=== PATIENT | male | born 1960 | race Caucasian/White ===

== ENCOUNTER 2017-07-06 19:25 | Inpatient (IN) | payer OTHER ==
[~2017-07-06] VITALS: Ht 170.2 cm; Wt 61.0 kg
[2017-07-06] MEDS ORDERED: SODIUM CHLORIDE 0.9% 1000ML BAG (SEPSIS BOLUS) IV ONE (19:45)
[2017-07-06 20:27] LABS: BASOPHILS % 0.4 % (0.0-2.0); EOSINOPHILS % 0.5 % (0.0-5.0); HEMATOCRIT. 27.5 % (42.0-52.0); HEMOGLOBIN. 9.3 g/dL (14.0-18.0); LYMPHOCYTES % 11.7 % (20.0-50.0); MEAN CORPUSCULAR VOLUME 80.1 fL (80.0-94.0); MEAN PLATELET VOLUME 6.5 fl (7.4-10.4); MONOCYTES % 7.7 % (2.0-8.0); NEUTROPHILS % 79.7 % (40.0-76.0); PLATELET 527 x1000/uL (130-400); RED BLOOD CELL COUNT 3.43 mill/uL (4.7-6.1); RED CELL DISTRIBUTION WIDTH 16.5 % (11.6-14.6)
[2017-07-06 20:32] LABS: INR 1.2; PROTHROMBIN TIME 12.1 sec (9.4-11.6)
[2017-07-06 20:33] LABS: CHLORIDE 88 mEq/L (98-107)
[2017-07-06 20:34] LABS: CARBON DIOXIDE 22 mEq/L (21-32)
[2017-07-06] MEDS ORDERED: VANCOMYCIN 1 G PREMIX 200 ML IV ONE (21:00)
[2017-07-06] MEDS ORDERED: SODIUM CHLORIDE 0.9% 1,000 ML IV ONE (21:00)
[2017-07-06] MEDS ORDERED: PIPERACILLIN/TAZ 3.375G PREMIX 50 ML IV ONE (21:00)
[2017-07-06] MEDS ORDERED: SODIUM CHLORIDE 0.9% 1,000 ML IV SCH ×2 (21:01→22:00)
[2017-07-06] MEDS ORDERED: IBUPROFEN 600MG TABLET PO PRN (21:15)
[2017-07-06] MEDS ORDERED: ACETAMINOPHEN 325MG TABLET PO PRN ×2 (21:15→22:14)
[2017-07-06] MEDS ORDERED: MORPHINE SULFATE 4 MG/ML CPJ (NOT FOR IM USE) IV ONE (21:15)
[2017-07-06] MEDS ORDERED: ENOXAPARIN 40MG/0.4ML SYR SUBCUT SCH (21:45)
[2017-07-06] MEDS ORDERED: PIPERACILLIN/TAZ 3.375G PREMIX 50 ML IV SCH (21:45)
[2017-07-06] MEDS ORDERED: VANCOMYCIN 1 G PREMIX 200 ML IV SCH (21:45)
[2017-07-06] MEDS ORDERED: ONDANSETRON HCL 4MG/2ML VIAL IV PRN (22:13)
[2017-07-06] MEDS ORDERED: CLONIDINE 0.1MG TABLET PO PRN (22:14)
[2017-07-06] MEDS ORDERED: DOCUSATE SODIUM 100MG CAPSULE PO PRN (22:14)
[2017-07-06] MEDS ORDERED: HYDROMORPHONE HCL/PF 2MG/ML CPJ IV PRN (22:45)
[2017-07-06 23:09] LABS: HEPATITIS B SURFACE ANTIGEN NEGATIVE
[2017-07-07] MEDS ORDERED: IPRATROPIUM/ALBUTEROL 0.5-3(2.5)MG/3ML NEB HHN SCH
[2017-07-07 00:46] LABS: CLARITY URINE TURBID (CLEAR); COLOR URINE YELLOW (YELLOW); GLUCOSE URINE NEGATIVE (NEGATIVE); KETONES URINE NEGATIVE (NEGATIVE); LEUKOCYTE ESTERASE URINE 3+ (NEGATIVE); NITRITE URINE NEGATIVE (NEGATIVE); OCCULT BLOOD URINE TRACE (NEGATIVE); PH URINE >=9.0 (4.5-8.0); PROTEIN URINE 2+ (NEGATIVE); SPECIFIC GRAVITY URINE 1.009 (1.005-1.030)
[2017-07-07] MEDS ORDERED: VANCOMYCIN 1 G PREMIX 200 ML IV SCH (01:45)
[2017-07-07 02:00] VITALS: BP 80/46
[2017-07-07] MEDS ORDERED: DEXTROSE 50% WATER 50ML SYRINGE IV PRN (02:15)
[2017-07-07] MEDS: SODIUM CHLORIDE 0.9% 1,000 ML IV SCH ×2 (03:09→14:31)
[2017-07-07 05:00] VITALS: BP 82/52
[2017-07-07] MEDS: BLOOD SUGAR DIAGNOSTIC STRIP TEST SCH ×4 (06:45→20:32)
[2017-07-07] MEDS: INSULIN LISPRO 100 UNITS/ML SUBCUT SCH ×4 (06:45→20:32)
[2017-07-07] MEDS: PIPERACILLIN/TAZ 3.375G PREMIX 50 ML IV SCH ×3 (06:45→22:57)
[2017-07-07 07:45] LABS: HEPATITIS A AB IGM NEGATIVE (NEGATIVE); HEPATITIS B CORE AB IGM NEGATIVE
[2017-07-07 08:00] VITALS: BP 80/44
[2017-07-07] MEDS: ENOXAPARIN 40MG/0.4ML SYR SUBCUT SCH (08:33)
[2017-07-07] MEDS ORDERED: FAMOTIDINE 20MG TABLET PO SCH (09:00)
[2017-07-07] MEDS ORDERED: VANCOMYCIN 1250MG in DEXTROSE 5% WATER 250ML IV SCH (09:00)
[2017-07-07] MEDS ORDERED: NON FORMULARY PATIENT HOME MED EA XX SCH (11:15)
[2017-07-07 12:00] VITALS: BP 84/48
[2017-07-07 16:00] VITALS: BP 71/42
[2017-07-07] MEDS: ACETAMINOPHEN 325MG TABLET PO PRN (16:51)
[2017-07-07] MEDS: FERROUS SULFATE 325MG TABLET PO SCH (16:51)
[2017-07-07] MEDS: VANCOMYCIN 750 MG PREMIX 150 ML IV SCH (17:14)
[2017-07-07 20:00] VITALS: BP 81/48
[2017-07-07] MEDS: FAMOTIDINE 20MG TABLET PO SCH (22:57)
[2017-07-08] VITALS: BP 84/47
[2017-07-08] MEDS: IPRATROPIUM/ALBUTEROL 0.5-3(2.5)MG/3ML NEB HHN SCH ×6 (00:35→20:18)
[2017-07-08] MEDS: VANCOMYCIN 750 MG PREMIX 150 ML IV SCH ×3 (01:11→17:25)
[2017-07-08 04:00] VITALS: BP 72/40
[2017-07-08] MEDS: SODIUM CHLORIDE 0.9% 1,000 ML IV SCH ×2 (05:02→17:26)
[2017-07-08] MEDS: PIPERACILLIN/TAZ 3.375G PREMIX 50 ML IV SCH ×3 (05:03→23:13)
[2017-07-08 05:55] LABS: BASOPHILS % 0.7 % (0.0-2.0); EOSINOPHILS % 0.7 % (0.0-5.0); HEMATOCRIT. 25.4 % (42.0-52.0); HEMOGLOBIN. 8.2 g/dL (14.0-18.0); LYMPHOCYTES % 10.1 % (20.0-50.0); MEAN CORPUSCULAR HEMOGLOBIN 26.5 pg (28.0-32.0); MEAN CORPUSCULAR VOLUME 81.7 fL (80.0-94.0); MEAN PLATELET VOLUME 6.2 fl (7.4-10.4); MONOCYTES % 6.6 % (2.0-8.0); NEUTROPHILS % 81.9 % (40.0-76.0); PLATELET 511 x1000/uL (130-400); RED BLOOD CELL COUNT 3.11 mill/uL (4.7-6.1); RED CELL DISTRIBUTION WIDTH 16.3 % (11.6-14.6)
[2017-07-08] MEDS: BLOOD SUGAR DIAGNOSTIC STRIP TEST SCH ×4 (06:11→21:00)
[2017-07-08] MEDS: INSULIN LISPRO 100 UNITS/ML SUBCUT SCH ×4 (06:16→21:00)
[2017-07-08 08:00] VITALS: BP 78/44
[2017-07-08] MEDS: FERROUS SULFATE 325MG TABLET PO SCH ×2 (09:11→16:39)
[2017-07-08] MEDS: FAMOTIDINE 20MG TABLET PO SCH ×2 (09:11→21:35)
[2017-07-08] MEDS: ENOXAPARIN 40MG/0.4ML SYR SUBCUT SCH (09:11)
[2017-07-08 12:00] VITALS: BP 82/49
[2017-07-08] MEDS: MULTIVITAMINS,THER W-MINERALS TABLET PO SCH (15:00)
[2017-07-08] MEDS: ZINC SULFATE 220 MG ( 50 ) CAPSULE PO SCH (15:00)
[2017-07-08 16:00] VITALS: BP 86/47
[2017-07-08 20:00] VITALS: BP 82/44
[2017-07-08] MEDS: ASCORBIC ACID 250 MG TABLET PO SCH (21:34)
[2017-07-09] MEDS: IPRATROPIUM/ALBUTEROL 0.5-3(2.5)MG/3ML NEB HHN SCH ×6 (00:26→21:27)
[2017-07-09] MEDS: VANCOMYCIN 750 MG PREMIX 150 ML IV SCH ×2 (01:23→09:13)
[2017-07-09] MEDS: BLOOD SUGAR DIAGNOSTIC STRIP TEST SCH ×4 (05:53→20:31)
[2017-07-09] MEDS: PIPERACILLIN/TAZ 3.375G PREMIX 50 ML IV SCH (05:58)
[2017-07-09] MEDS: SODIUM CHLORIDE 0.9% 1,000 ML IV SCH ×2 (06:01→20:32)
[2017-07-09] MEDS: INSULIN LISPRO 100 UNITS/ML SUBCUT SCH ×4 (06:18→20:31)
[2017-07-09 06:29] VITALS: BP 84/49
[2017-07-09 07:00] LABS: BASOPHILS % 0.6 % (0.0-2.0); EOSINOPHILS % 0.8 % (0.0-5.0); HEMATOCRIT. 22.5 % (42.0-52.0); HEMOGLOBIN. 7.4 g/dL (14.0-18.0); LYMPHOCYTES % 10.8 % (20.0-50.0); MEAN CORPUSCULAR HEMOGLOBIN 26.7 pg (28.0-32.0); MEAN CORPUSCULAR VOLUME 81.3 fL (80.0-94.0); MEAN PLATELET VOLUME 6.1 fl (7.4-10.4); MONOCYTES % 7.4 % (2.0-8.0); NEUTROPHILS % 80.4 % (40.0-76.0); PLATELET 485 x1000/uL (130-400); RED BLOOD CELL COUNT 2.76 mill/uL (4.7-6.1); RED CELL DISTRIBUTION WIDTH 16.6 % (11.6-14.6)
[2017-07-09 07:49] LABS: CARBON DIOXIDE 24 mEq/L (21-32); CHLORIDE 102 mEq/L (98-107)
[2017-07-09 08:00] VITALS: BP 82/40
[2017-07-09] MEDS: MULTIVITAMINS,THER W-MINERALS TABLET PO SCH (09:12)
[2017-07-09] MEDS: ASCORBIC ACID 250 MG TABLET PO SCH ×2 (09:12→20:31)
[2017-07-09] MEDS: ZINC SULFATE 220 MG ( 50 ) CAPSULE PO SCH (09:12)
[2017-07-09] MEDS: FERROUS SULFATE 325MG TABLET PO SCH ×2 (09:12→18:20)
[2017-07-09] MEDS: SODIUM HYPOCHLORITE SOLUTION (0.5%)FULL STRENGTH TOP SCH (09:12)
[2017-07-09] MEDS: FAMOTIDINE 20MG TABLET PO SCH ×2 (09:12→20:31)
[2017-07-09] MEDS: ENOXAPARIN 40MG/0.4ML SYR SUBCUT SCH (09:12)
[2017-07-09 11:59] VITALS: BP 89/54
[2017-07-09 16:03] VITALS: BP 88/59
[2017-07-09] MEDS: MEROPENEM 500MG in NORMAL SALINE 50ML IV SCH ×2 (16:54→21:55)
[2017-07-09] MEDS: ACETAMINOPHEN 325MG TABLET PO PRN (16:54)
[2017-07-09 17:40] LABS: HEMATOCRIT 22.8 % (42.0-52.0); HEMOGLOBIN 7.5 g/dL (14.0-18.0)
[2017-07-09 20:00] VITALS: BP 84/49
[2017-07-10] VITALS (10 sets, daily range): BP systolic 83–110; BP diastolic 38–60
[2017-07-10] MEDS: IPRATROPIUM/ALBUTEROL 0.5-3(2.5)MG/3ML NEB HHN SCH ×6 (00:57→20:59)
[2017-07-10] MEDS: MEROPENEM 500MG in NORMAL SALINE 50ML IV SCH ×3 (05:29→21:45)
[2017-07-10] MEDS: FERROUS SULFATE 325MG TABLET PO SCH ×2 (06:52→17:21)
[2017-07-10] MEDS: INSULIN LISPRO 100 UNITS/ML SUBCUT SCH ×4 (06:52→21:46)
[2017-07-10] MEDS: BLOOD SUGAR DIAGNOSTIC STRIP TEST SCH ×4 (06:52→20:44)
[2017-07-10 07:36] LABS: BASOPHILS % 0.6 % (0.0-2.0); EOSINOPHILS % 1.3 % (0.0-5.0); HEMATOCRIT. 22.1 % (42.0-52.0); HEMOGLOBIN. 7.4 g/dL (14.0-18.0); LYMPHOCYTES % 16.8 % (20.0-50.0); MEAN CORPUSCULAR HEMOGLOBIN 27.3 pg (28.0-32.0); MEAN CORPUSCULAR VOLUME 81.3 fL (80.0-94.0); MEAN PLATELET VOLUME 6.4 fl (7.4-10.4); NEUTROPHILS % 72.3 % (40.0-76.0); PLATELET 508 x1000/uL (130-400); RED BLOOD CELL COUNT 2.72 mill/uL (4.7-6.1); RED CELL DISTRIBUTION WIDTH 16.9 % (11.6-14.6)
[2017-07-10 07:54] LABS: CARBON DIOXIDE 25 mEq/L (21-32); CHLORIDE 102 mEq/L (98-107)
[2017-07-10] MEDS: MULTIVITAMINS,THER W-MINERALS TABLET PO SCH (08:53)
[2017-07-10] MEDS: FAMOTIDINE 20MG TABLET PO SCH ×2 (08:53→20:44)
[2017-07-10] MEDS: ASCORBIC ACID 250 MG TABLET PO SCH ×2 (08:53→20:44)
[2017-07-10] MEDS: ZINC SULFATE 220 MG ( 50 ) CAPSULE PO SCH (08:53)
[2017-07-10] MEDS: SODIUM CHLORIDE 0.9% 1,000 ML IV SCH (08:54)
[2017-07-10] MEDS: SODIUM HYPOCHLORITE SOLUTION (0.5%)FULL STRENGTH TOP SCH (08:54)
[2017-07-10] MEDS: ACETAMINOPHEN 325MG TABLET PO PRN (16:47)
[2017-07-11] VITALS: BP 88/48
[2017-07-11] MEDS: IPRATROPIUM/ALBUTEROL 0.5-3(2.5)MG/3ML NEB HHN SCH ×6 (00:17→20:37)
[2017-07-11 04:00] VITALS: BP_SYST 88; BP_SYST 94; BP_DIAS 48; BP_DIAS 49
[2017-07-11] MEDS: SODIUM CHLORIDE 0.9% 1,000 ML IV SCH ×2 (05:03→11:23)
[2017-07-11] MEDS: MEROPENEM 500MG in NORMAL SALINE 50ML IV SCH ×3 (05:04→23:25)
[2017-07-11] MEDS: BLOOD SUGAR DIAGNOSTIC STRIP TEST SCH ×4 (06:14→21:50)
[2017-07-11] MEDS: INSULIN LISPRO 100 UNITS/ML SUBCUT SCH ×4 (06:14→21:58)
[2017-07-11] MEDS: FERROUS SULFATE 325MG TABLET PO SCH ×3 (06:48→16:46)
[2017-07-11 07:00] LABS: BASOPHILS % 0.7 % (0.0-2.0); EOSINOPHILS % 1.5 % (0.0-5.0); HEMATOCRIT. 24.8 % (42.0-52.0); HEMOGLOBIN. 8.1 g/dL (14.0-18.0); LYMPHOCYTES % 15.3 % (20.0-50.0); MEAN CORPUSCULAR HEMOGLOBIN 26.6 pg (28.0-32.0); MEAN PLATELET VOLUME 6.2 fl (7.4-10.4); MONOCYTES % 8.8 % (2.0-8.0); NEUTROPHILS % 73.7 % (40.0-76.0); PLATELET 502 x1000/uL (130-400); RED BLOOD CELL COUNT 3.06 mill/uL (4.7-6.1); RED CELL DISTRIBUTION WIDTH 16.8 % (11.6-14.6)
[2017-07-11 08:00] VITALS: BP 93/53
[2017-07-11] MEDS: FAMOTIDINE 20MG TABLET PO SCH ×2 (08:52→21:54)
[2017-07-11] MEDS: ZINC SULFATE 220 MG ( 50 ) CAPSULE PO SCH (08:52)
[2017-07-11] MEDS: ASCORBIC ACID 250 MG TABLET PO SCH ×2 (08:52→21:54)
[2017-07-11] MEDS: MULTIVITAMINS,THER W-MINERALS TABLET PO SCH (08:52)
[2017-07-11] MEDS: SODIUM HYPOCHLORITE SOLUTION (0.5%)FULL STRENGTH TOP SCH (08:54)
[2017-07-11] MEDS ORDERED: ACETAMINOPHEN WITH CODEINE 300/30MG TABLET PO NR (11:45)
[2017-07-11 11:57] LABS: *AMPHETAMINES SCREEN URINE NEGATIVE (NEGATIVE); *BARBITURATES SCREEN URINE NEGATIVE (NEGATIVE); *BENZODIAZEPINES SCREEN URINE NEGATIVE (NEGATIVE); *COCAINE SCREEN URINE NEGATIVE (NEGATIVE); CANNABINOID URINE SCREEN NEGATIVE (NEGATIVE); METHADONE URINE SCREEN NEGATIVE (NEGATIVE); OPIATES URINE SCREEN NEGATIVE (NEGATIVE); PHENCYCLIDINE URINE SCREEN NEGATIVE (NEGATIVE)
[2017-07-11 12:00] VITALS: BP 98/61
[2017-07-11 20:00] VITALS: BP 92/58
[2017-07-11] MEDS: ACETAMINOPHEN WITH CODEINE 300/30MG TABLET PO PRN (23:53)
[2017-07-12] VITALS: BP 93/57
[2017-07-12] MEDS: IPRATROPIUM/ALBUTEROL 0.5-3(2.5)MG/3ML NEB HHN SCH ×6 (00:37→21:07)
[2017-07-12] MEDS: SODIUM CHLORIDE 0.9% 1,000 ML IV SCH ×2 (03:10→15:05)
[2017-07-12 04:00] VITALS: BP 96/56
[2017-07-12] MEDS: BLOOD SUGAR DIAGNOSTIC STRIP TEST SCH ×4 (06:15→20:58)
[2017-07-12] MEDS: INSULIN LISPRO 100 UNITS/ML SUBCUT SCH ×4 (06:15→20:59)
[2017-07-12 06:17] LABS: EOSINOPHILS % 1.7 % (0.0-5.0); HEMOGLOBIN. 8.2 g/dL (14.0-18.0); LYMPHOCYTES % 15.6 % (20.0-50.0); MEAN CORPUSCULAR HEMOGLOBIN 26.5 pg (28.0-32.0); MEAN CORPUSCULAR VOLUME 81.1 fL (80.0-94.0); MEAN PLATELET VOLUME 6.1 fl (7.4-10.4); MONOCYTES % 7.7 % (2.0-8.0); PLATELET 499 x1000/uL (130-400); RED BLOOD CELL COUNT 3.08 mill/uL (4.7-6.1)
[2017-07-12] MEDS: MEROPENEM 500MG in NORMAL SALINE 50ML IV SCH ×3 (06:23→23:21)
[2017-07-12] MEDS: FERROUS SULFATE 325MG TABLET PO SCH ×3 (06:27→16:32)
[2017-07-12 06:49] LABS: CARBON DIOXIDE 25 mEq/L (21-32); CHLORIDE 102 mEq/L (98-107)
[2017-07-12 08:00] VITALS: BP 96/58
[2017-07-12] MEDS: ZINC SULFATE 220 MG ( 50 ) CAPSULE PO SCH (08:45)
[2017-07-12] MEDS: MULTIVITAMINS,THER W-MINERALS TABLET PO SCH (08:46)
[2017-07-12] MEDS: ASCORBIC ACID 250 MG TABLET PO SCH ×2 (08:46→20:59)
[2017-07-12] MEDS: FAMOTIDINE 20MG TABLET PO SCH ×2 (08:46→20:59)
[2017-07-12] MEDS: SODIUM HYPOCHLORITE SOLUTION (0.5%)FULL STRENGTH TOP SCH (08:47)
[2017-07-12 12:00] VITALS: BP 99/55
[2017-07-12] MEDS: ACETAMINOPHEN WITH CODEINE 300/30MG TABLET PO PRN ×2 (13:05→21:00)
[2017-07-12 16:00] VITALS: BP 96/55
[2017-07-12] MEDS: AMPICILLIN TRIHYDRATE PO SCH ×2 (18:35→23:21)
[2017-07-12 20:00] VITALS: BP 109/63
[2017-07-13] VITALS: BP 109/65
[2017-07-13] MEDS: IPRATROPIUM/ALBUTEROL 0.5-3(2.5)MG/3ML NEB HHN SCH ×6 (00:40→20:18)
[2017-07-13 04:00] VITALS: BP 110/60
[2017-07-13] MEDS: MEROPENEM 500MG in NORMAL SALINE 50ML IV SCH ×3 (06:27→21:27)
[2017-07-13] MEDS: SODIUM CHLORIDE 0.9% 1,000 ML IV SCH ×2 (06:27→18:10)
[2017-07-13] MEDS: AMPICILLIN TRIHYDRATE PO SCH ×4 (06:28→23:26)
[2017-07-13] MEDS: INSULIN LISPRO 100 UNITS/ML SUBCUT SCH ×4 (06:38→21:00)
[2017-07-13] MEDS: BLOOD SUGAR DIAGNOSTIC STRIP TEST SCH ×4 (06:38→21:30)
[2017-07-13 06:57] LABS: BASOPHILS % 1.1 % (0.0-2.0); EOSINOPHILS % 1.8 % (0.0-5.0); HEMATOCRIT. 25.3 % (42.0-52.0); HEMOGLOBIN. 8.3 g/dL (14.0-18.0); LYMPHOCYTES % 13.3 % (20.0-50.0); MEAN CORPUSCULAR HEMOGLOBIN 26.6 pg (28.0-32.0); MEAN CORPUSCULAR VOLUME 80.9 fL (80.0-94.0); MEAN PLATELET VOLUME 6.1 fl (7.4-10.4); MONOCYTES % 8.1 % (2.0-8.0); NEUTROPHILS % 75.7 % (40.0-76.0); PLATELET 494 x1000/uL (130-400); RED BLOOD CELL COUNT 3.13 mill/uL (4.7-6.1); RED CELL DISTRIBUTION WIDTH 17.2 % (11.6-14.6)
[2017-07-13 07:06] LABS: CARBON DIOXIDE 28 mEq/L (21-32); CHLORIDE 101 mEq/L (98-107)
[2017-07-13 08:00] VITALS: BP 90/54
[2017-07-13] MEDS: SODIUM HYPOCHLORITE SOLUTION (0.5%)FULL STRENGTH TOP SCH ×2 (09:00→10:01)
[2017-07-13] MEDS: ZINC SULFATE 220 MG ( 50 ) CAPSULE PO SCH (10:00)
[2017-07-13] MEDS: FAMOTIDINE 20MG TABLET PO SCH ×2 (10:00→22:05)
[2017-07-13] MEDS: FERROUS SULFATE 325MG TABLET PO SCH ×3 (10:00→18:10)
[2017-07-13] MEDS: ASCORBIC ACID 250 MG TABLET PO SCH ×2 (10:00→21:26)
[2017-07-13] MEDS: MULTIVITAMINS,THER W-MINERALS TABLET PO SCH (10:00)
[2017-07-13 12:00] VITALS: BP 95/53
[2017-07-13 16:00] VITALS: BP 85/48
[2017-07-13 20:00] VITALS: BP 90/48
[2017-07-13] MEDS: ACETAMINOPHEN WITH CODEINE 300/30MG TABLET PO PRN (22:06)
[2017-07-13] MEDS ORDERED: SODIUM HYPOCHLORITE SOLUTION (0.5%)FULL STRENGTH TOP NR (22:15)
[2017-07-14] VITALS: BP 93/50
[2017-07-14] MEDS: IPRATROPIUM/ALBUTEROL 0.5-3(2.5)MG/3ML NEB HHN SCH ×6 (01:08→19:42)
[2017-07-14 04:00] VITALS: BP 85/48
[2017-07-14] MEDS: AMPICILLIN TRIHYDRATE PO SCH ×4 (05:51→23:46)
[2017-07-14] MEDS: MEROPENEM 500MG in NORMAL SALINE 50ML IV SCH ×3 (05:51→22:29)
[2017-07-14] MEDS: BLOOD SUGAR DIAGNOSTIC STRIP TEST SCH ×4 (05:55→20:43)
[2017-07-14] MEDS: INSULIN LISPRO 100 UNITS/ML SUBCUT SCH ×4 (05:55→20:43)
[2017-07-14] MEDS: SODIUM CHLORIDE 0.9% 1,000 ML IV SCH ×2 (06:16→20:25)
[2017-07-14 06:25] LABS: BASOPHILS % 0.9 % (0.0-2.0); EOSINOPHILS % 1.9 % (0.0-5.0); HEMATOCRIT. 24.1 % (42.0-52.0); HEMOGLOBIN. 7.9 g/dL (14.0-18.0); MEAN CORPUSCULAR HEMOGLOBIN 26.5 pg (28.0-32.0); MEAN CORPUSCULAR VOLUME 80.4 fL (80.0-94.0); MEAN PLATELET VOLUME 6.2 fl (7.4-10.4); MONOCYTES % 7.3 % (2.0-8.0); NEUTROPHILS % 71.9 % (40.0-76.0); PLATELET 453 x1000/uL (130-400)
[2017-07-14 08:08] VITALS: BP 93/56
[2017-07-14] MEDS: ZINC SULFATE 220 MG ( 50 ) CAPSULE PO SCH (09:03)
[2017-07-14] MEDS: MULTIVITAMINS,THER W-MINERALS TABLET PO SCH (09:03)
[2017-07-14] MEDS: FERROUS SULFATE 325MG TABLET PO SCH ×3 (09:04→17:24)
[2017-07-14] MEDS: FAMOTIDINE 20MG TABLET PO SCH ×2 (09:04→20:43)
[2017-07-14] MEDS: SODIUM HYPOCHLORITE SOLUTION (0.5%)FULL STRENGTH TOP SCH (09:04)
[2017-07-14] MEDS: ASCORBIC ACID 250 MG TABLET PO SCH ×2 (09:04→20:43)
[2017-07-14 12:59] VITALS: BP 139/68
[2017-07-14 16:11] VITALS: BP 98/56
[2017-07-14 20:00] VITALS: BP 111/64
[2017-07-14] MEDS: ACETAMINOPHEN 325MG TABLET PO PRN (20:43)
[2017-07-15] VITALS: BP 95/58
[2017-07-15] MEDS: IPRATROPIUM/ALBUTEROL 0.5-3(2.5)MG/3ML NEB HHN SCH ×6 (00:36→21:24)
[2017-07-15 04:00] VITALS: BP 97/58
[2017-07-15] MEDS: MEROPENEM 500MG in NORMAL SALINE 50ML IV SCH ×3 (04:48→22:13)
[2017-07-15] MEDS: SODIUM CHLORIDE 0.9% 1,000 ML IV SCH ×2 (04:48→16:40)
[2017-07-15] MEDS: AMPICILLIN TRIHYDRATE PO SCH ×3 (04:48→17:14)
[2017-07-15] MEDS: INSULIN LISPRO 100 UNITS/ML SUBCUT SCH ×4 (06:13→21:00)
[2017-07-15] MEDS: BLOOD SUGAR DIAGNOSTIC STRIP TEST SCH ×4 (06:13→21:00)
[2017-07-15 08:00] VITALS: BP 98/60
[2017-07-15] MEDS: MULTIVITAMINS,THER W-MINERALS TABLET PO SCH (09:00)
[2017-07-15] MEDS: ASCORBIC ACID 250 MG TABLET PO SCH ×2 (09:00→22:13)
[2017-07-15] MEDS: FERROUS SULFATE 325MG TABLET PO SCH ×3 (09:00→16:40)
[2017-07-15] MEDS: ZINC SULFATE 220 MG ( 50 ) CAPSULE PO SCH (09:00)
[2017-07-15] MEDS: FAMOTIDINE 20MG TABLET PO SCH ×2 (09:00→22:13)
[2017-07-15] MEDS: SODIUM HYPOCHLORITE SOLUTION (0.5%)FULL STRENGTH TOP SCH (09:03)
[2017-07-15 12:00] VITALS: BP 90/49
[2017-07-15 16:00] VITALS: BP 99/53
[2017-07-15 20:00] VITALS: BP 101/63
[2017-07-16] VITALS: BP 94/54
[2017-07-16] MEDS: ACETAMINOPHEN 325MG TABLET PO PRN ×2 (00:13→18:06)
[2017-07-16] MEDS: AMPICILLIN TRIHYDRATE PO SCH ×4 (00:13→18:05)
[2017-07-16] MEDS: IPRATROPIUM/ALBUTEROL 0.5-3(2.5)MG/3ML NEB HHN SCH ×6 (01:28→20:00)
[2017-07-16 05:00] VITALS: BP 93/58
[2017-07-16] MEDS: MEROPENEM 500MG in NORMAL SALINE 50ML IV SCH ×3 (05:08→22:03)
[2017-07-16] MEDS: SODIUM CHLORIDE 0.9% 1,000 ML IV SCH (05:09)
[2017-07-16] MEDS: BLOOD SUGAR DIAGNOSTIC STRIP TEST SCH ×4 (05:19→21:00)
[2017-07-16] MEDS: INSULIN LISPRO 100 UNITS/ML SUBCUT SCH ×4 (05:19→21:00)
[2017-07-16 06:36] LABS: BASOPHILS % 1.1 % (0.0-2.0); HEMATOCRIT. 24.1 % (42.0-52.0); HEMOGLOBIN. 8.1 g/dL (14.0-18.0); LYMPHOCYTES % 20.5 % (20.0-50.0); MEAN CORPUSCULAR HEMOGLOBIN 27.3 pg (28.0-32.0); MEAN PLATELET VOLUME 6.3 fl (7.4-10.4); MONOCYTES % 7.4 % (2.0-8.0); PLATELET 492 x1000/uL (130-400); RED BLOOD CELL COUNT 2.97 mill/uL (4.7-6.1); RED CELL DISTRIBUTION WIDTH 17.3 % (11.6-14.6)
[2017-07-16 06:53] LABS: CARBON DIOXIDE 30 mEq/L (21-32); CHLORIDE 101 mEq/L (98-107)
[2017-07-16 08:00] VITALS: BP 101/62
[2017-07-16] MEDS: MULTIVITAMINS,THER W-MINERALS TABLET PO SCH (08:33)
[2017-07-16] MEDS: ASCORBIC ACID 250 MG TABLET PO SCH ×2 (08:33→22:06)
[2017-07-16] MEDS: FAMOTIDINE 20MG TABLET PO SCH ×2 (08:33→22:06)
[2017-07-16] MEDS: SODIUM HYPOCHLORITE SOLUTION (0.5%)FULL STRENGTH TOP SCH (08:33)
[2017-07-16] MEDS: ZINC SULFATE 220 MG ( 50 ) CAPSULE PO SCH (08:33)
[2017-07-16] MEDS: FERROUS SULFATE 325MG TABLET PO SCH ×3 (08:33→18:05)
[2017-07-16 12:00] VITALS: BP 93/53
[2017-07-16] MEDS: ACETAMINOPHEN WITH CODEINE 300/30MG TABLET PO PRN (12:04)
[2017-07-16 16:00] VITALS: BP 94/54
[2017-07-17] MEDS: AMPICILLIN TRIHYDRATE PO SCH ×4 (02:42→17:30)
[2017-07-17] MEDS: SODIUM CHLORIDE 0.9% 1,000 ML IV SCH ×2 (02:42→14:13)
[2017-07-17] MEDS: IPRATROPIUM/ALBUTEROL 0.5-3(2.5)MG/3ML NEB HHN SCH ×5 (04:00→20:38)
[2017-07-17] MEDS: INSULIN LISPRO 100 UNITS/ML SUBCUT SCH ×4 (06:24→21:49)
[2017-07-17] MEDS: BLOOD SUGAR DIAGNOSTIC STRIP TEST SCH ×4 (06:24→21:49)
[2017-07-17 08:00] VITALS: BP 98/50
[2017-07-17] MEDS: MULTIVITAMINS,THER W-MINERALS TABLET PO SCH (09:08)
[2017-07-17] MEDS: FERROUS SULFATE 325MG TABLET PO SCH ×3 (09:08→17:30)
[2017-07-17] MEDS: ASCORBIC ACID 250 MG TABLET PO SCH ×2 (09:08→21:43)
[2017-07-17] MEDS: SODIUM HYPOCHLORITE SOLUTION (0.5%)FULL STRENGTH TOP SCH (09:08)
[2017-07-17] MEDS: ZINC SULFATE 220 MG ( 50 ) CAPSULE PO SCH (09:08)
[2017-07-17] MEDS: ACETAMINOPHEN 325MG TABLET PO PRN (11:55)
[2017-07-17] MEDS: FAMOTIDINE 20MG TABLET PO SCH ×2 (11:55→21:43)
[2017-07-17 12:00] VITALS: BP 95/56
[2017-07-17 16:00] VITALS: BP 88/49
[2017-07-17 20:00] VITALS: BP 79/38
[2017-07-18] VITALS: BP 89/57
[2017-07-18] MEDS: AMPICILLIN TRIHYDRATE PO SCH ×5 (00:23→23:10)
[2017-07-18] MEDS: IPRATROPIUM/ALBUTEROL 0.5-3(2.5)MG/3ML NEB HHN SCH ×4 (00:45→20:00)
[2017-07-18] MEDS: ACETAMINOPHEN 325MG TABLET PO PRN (01:53)
[2017-07-18 04:00] VITALS: BP 81/48
[2017-07-18] MEDS: INSULIN LISPRO 100 UNITS/ML SUBCUT SCH ×4 (06:45→21:00)
[2017-07-18] MEDS: BLOOD SUGAR DIAGNOSTIC STRIP TEST SCH ×4 (06:45→21:00)
[2017-07-18] MEDS: SODIUM CHLORIDE 0.9% 1,000 ML IV SCH ×2 (06:54→17:11)
[2017-07-18 08:00] VITALS: BP 115/62
[2017-07-18] MEDS: MULTIVITAMINS,THER W-MINERALS TABLET PO SCH (08:32)
[2017-07-18] MEDS: FAMOTIDINE 20MG TABLET PO SCH ×2 (08:32→22:54)
[2017-07-18] MEDS: ZINC SULFATE 220 MG ( 50 ) CAPSULE PO SCH (08:32)
[2017-07-18] MEDS: FERROUS SULFATE 325MG TABLET PO SCH ×3 (08:32→17:11)
[2017-07-18] MEDS: ASCORBIC ACID 250 MG TABLET PO SCH ×2 (08:32→22:54)
[2017-07-18] MEDS: SODIUM HYPOCHLORITE SOLUTION (0.5%)FULL STRENGTH TOP SCH (08:33)
[2017-07-18 12:00] VITALS: BP 113/69
[2017-07-18 16:00] VITALS: BP 109/72
[2017-07-18 20:00] VITALS: BP 96/59
[2017-07-19] VITALS: BP 102/61
[2017-07-19] MEDS: IPRATROPIUM/ALBUTEROL 0.5-3(2.5)MG/3ML NEB HHN SCH ×8 (04:00→21:42)
[2017-07-19] MEDS: AMPICILLIN TRIHYDRATE PO SCH ×3 (05:54→17:50)
[2017-07-19] MEDS: BLOOD SUGAR DIAGNOSTIC STRIP TEST SCH ×4 (05:57→21:46)
[2017-07-19] MEDS: INSULIN LISPRO 100 UNITS/ML SUBCUT SCH ×4 (07:15→21:00)
[2017-07-19 08:00] VITALS: BP 100/62
[2017-07-19] MEDS: MULTIVITAMINS,THER W-MINERALS TABLET PO SCH (08:23)
[2017-07-19] MEDS: FERROUS SULFATE 325MG TABLET PO SCH ×3 (08:23→17:50)
[2017-07-19] MEDS: ASCORBIC ACID 250 MG TABLET PO SCH ×2 (08:24→21:36)
[2017-07-19] MEDS: ZINC SULFATE 220 MG ( 50 ) CAPSULE PO SCH (08:24)
[2017-07-19] MEDS: FAMOTIDINE 20MG TABLET PO SCH ×2 (08:24→21:36)
[2017-07-19] MEDS: SODIUM CHLORIDE 0.9% 1,000 ML IV SCH (08:24)
[2017-07-19] MEDS: SODIUM HYPOCHLORITE SOLUTION (0.5%)FULL STRENGTH TOP SCH (09:00)
[2017-07-19 12:00] VITALS: BP 105/64
[2017-07-19] MEDS ORDERED: AMPICILLIN TRIHYDRATE PO NR (12:15)
[2017-07-19 12:40] LABS: HEMATOCRIT 26.1 % (42.0-52.0); HEMOGLOBIN 8.7 g/dL (14.0-18.0)
[2017-07-19 16:00] VITALS: BP 106/70
[2017-07-19 20:00] VITALS: BP 104/54
[2017-07-20] VITALS: BP 95/53
[2017-07-20] MEDS: SODIUM CHLORIDE 0.9% 1,000 ML IV SCH ×2 (00:21→13:03)
[2017-07-20] MEDS: IPRATROPIUM/ALBUTEROL 0.5-3(2.5)MG/3ML NEB HHN SCH ×6 (01:06→21:05)
[2017-07-20 04:00] VITALS: BP 100/55
[2017-07-20] MEDS: BLOOD SUGAR DIAGNOSTIC STRIP TEST SCH ×4 (06:41→21:00)
[2017-07-20] MEDS: INSULIN LISPRO 100 UNITS/ML SUBCUT SCH ×4 (06:41→21:00)
[2017-07-20] MEDS: FERROUS SULFATE 325MG TABLET PO SCH ×3 (06:44→17:45)
[2017-07-20 07:40] LABS: CARBON DIOXIDE 26 mEq/L (21-32); CHLORIDE 102 mEq/L (98-107)
[2017-07-20 07:51] LABS: BASOPHILS % 1.2 % (0.0-2.0); EOSINOPHILS % 2.3 % (0.0-5.0); HEMATOCRIT. 26.2 % (42.0-52.0); HEMOGLOBIN. 8.5 g/dL (14.0-18.0); LYMPHOCYTES % 25.3 % (20.0-50.0); MEAN CORPUSCULAR HEMOGLOBIN 26.5 pg (28.0-32.0); MEAN CORPUSCULAR VOLUME 81.6 fL (80.0-94.0); MEAN PLATELET VOLUME 6.4 fl (7.4-10.4); MONOCYTES % 14.7 % (2.0-8.0); NEUTROPHILS % 56.5 % (40.0-76.0); PLATELET 555 x1000/uL (130-400); RED BLOOD CELL COUNT 3.22 mill/uL (4.7-6.1); RED CELL DISTRIBUTION WIDTH 17.5 % (11.6-14.6)
[2017-07-20 08:00] VITALS: BP 91/54
[2017-07-20] MEDS: MULTIVITAMINS,THER W-MINERALS TABLET PO SCH (09:17)
[2017-07-20] MEDS: ASCORBIC ACID 250 MG TABLET PO SCH ×2 (09:17→21:19)
[2017-07-20] MEDS: FAMOTIDINE 20MG TABLET PO SCH ×2 (09:17→21:19)
[2017-07-20] MEDS: ZINC SULFATE 220 MG ( 50 ) CAPSULE PO SCH (09:17)
[2017-07-20] MEDS: SODIUM HYPOCHLORITE SOLUTION (0.5%)FULL STRENGTH TOP SCH (09:19)
[2017-07-20 12:00] VITALS: BP 90/58
[2017-07-20 17:00] VITALS: BP 92/50
[2017-07-20 20:00] VITALS: BP 98/48
[2017-07-20] MEDS: MEROPENEM 500 MG in SODIUM CHLORIDE 0.9% 50 ML IV SCH (21:22)
[2017-07-21] MEDS: SODIUM CHLORIDE 0.9% 1,000 ML IV SCH ×2 (00:14→13:02)
[2017-07-21] MEDS: ACETAMINOPHEN 325MG TABLET PO PRN (02:35)
[2017-07-21 04:00] VITALS: BP 93/52
[2017-07-21] MEDS: IPRATROPIUM/ALBUTEROL 0.5-3(2.5)MG/3ML NEB HHN SCH ×5 (04:00→16:00)
[2017-07-21] MEDS: MEROPENEM 500 MG in SODIUM CHLORIDE 0.9% 50 ML IV SCH ×3 (06:15→21:52)
[2017-07-21] MEDS: BLOOD SUGAR DIAGNOSTIC STRIP TEST SCH ×4 (06:28→21:54)
[2017-07-21] MEDS: INSULIN LISPRO 100 UNITS/ML SUBCUT SCH ×4 (06:28→21:00)
[2017-07-21 07:33] LABS: BASOPHILS % 1.3 % (0.0-2.0); EOSINOPHILS % 2.8 % (0.0-5.0); LYMPHOCYTES % 27.1 % (20.0-50.0); MEAN CORPUSCULAR VOLUME 81.1 fL (80.0-94.0); MEAN PLATELET VOLUME 6.5 fl (7.4-10.4); MONOCYTES % 12.7 % (2.0-8.0); NEUTROPHILS % 56.1 % (40.0-76.0); PLATELET 571 x1000/uL (130-400); RED BLOOD CELL COUNT 3.33 mill/uL (4.7-6.1); RED CELL DISTRIBUTION WIDTH 17.4 % (11.6-14.6)
[2017-07-21 08:00] VITALS: BP 103/60
[2017-07-21] MEDS: ZINC SULFATE 220 MG ( 50 ) CAPSULE PO SCH (10:15)
[2017-07-21] MEDS: MULTIVITAMINS,THER W-MINERALS TABLET PO SCH (10:15)
[2017-07-21] MEDS: FAMOTIDINE 20MG TABLET PO SCH ×2 (10:15→21:52)
[2017-07-21] MEDS: ASCORBIC ACID 250 MG TABLET PO SCH ×2 (10:16→21:52)
[2017-07-21] MEDS: FERROUS SULFATE 325MG TABLET PO SCH ×3 (10:16→17:49)
[2017-07-21 12:00] VITALS: BP 94/54
[2017-07-21] MEDS: SODIUM HYPOCHLORITE SOLUTION (0.5%)FULL STRENGTH TOP SCH (14:53)
[2017-07-21 16:00] VITALS: BP 86/47
[2017-07-21 20:00] VITALS: BP 97/55
[2017-07-22] VITALS: BP_SYST 110; BP_SYST 111; BP_DIAS 56; BP_DIAS 89
[2017-07-22] MEDS: SODIUM CHLORIDE 0.9% 1,000 ML IV SCH (02:00)
[2017-07-22 04:00] VITALS: BP 102/63
[2017-07-22] MEDS: FERROUS SULFATE 325MG TABLET PO SCH ×3 (06:45→18:22)
[2017-07-22] MEDS: MEROPENEM 500 MG in SODIUM CHLORIDE 0.9% 50 ML IV SCH ×3 (06:45→21:40)
[2017-07-22] MEDS: BLOOD SUGAR DIAGNOSTIC STRIP TEST SCH ×4 (06:46→21:36)
[2017-07-22] MEDS: INSULIN LISPRO 100 UNITS/ML SUBCUT SCH ×4 (06:54→21:00)
[2017-07-22 07:00] LABS: BASOPHILS % 1.5 % (0.0-2.0); EOSINOPHILS % 2.9 % (0.0-5.0); HEMATOCRIT. 26.5 % (42.0-52.0); HEMOGLOBIN. 8.7 g/dL (14.0-18.0); LYMPHOCYTES % 23.9 % (20.0-50.0); MEAN CORPUSCULAR HEMOGLOBIN 26.7 pg (28.0-32.0); MEAN CORPUSCULAR VOLUME 80.9 fL (80.0-94.0); MEAN PLATELET VOLUME 6.3 fl (7.4-10.4); MONOCYTES % 12.5 % (2.0-8.0); NEUTROPHILS % 59.2 % (40.0-76.0); PLATELET 601 x1000/uL (130-400); RED BLOOD CELL COUNT 3.28 mill/uL (4.7-6.1); RED CELL DISTRIBUTION WIDTH 17.5 % (11.6-14.6)
[2017-07-22 08:00] VITALS: BP 102/54
[2017-07-22] MEDS: MULTIVITAMINS,THER W-MINERALS TABLET PO SCH (08:21)
[2017-07-22] MEDS: FAMOTIDINE 20MG TABLET PO SCH ×2 (08:21→21:40)
[2017-07-22] MEDS: ASCORBIC ACID 250 MG TABLET PO SCH ×2 (08:21→21:40)
[2017-07-22] MEDS: ZINC SULFATE 220 MG ( 50 ) CAPSULE PO SCH (08:21)
[2017-07-22] MEDS: SODIUM HYPOCHLORITE SOLUTION (0.5%)FULL STRENGTH TOP SCH (08:23)
[2017-07-22] MEDS: ACETAMINOPHEN 325MG TABLET PO PRN (11:38)
[2017-07-22 12:33] VITALS: BP 86/51
[2017-07-22 16:00] VITALS: BP 92/50
[2017-07-22 20:00] VITALS: BP 92/53
[2017-07-23] VITALS: BP 100/55
[2017-07-23] MEDS: BLOOD SUGAR DIAGNOSTIC STRIP TEST SCH ×4 (06:24→21:00)
[2017-07-23] MEDS: INSULIN LISPRO 100 UNITS/ML SUBCUT SCH ×4 (06:25→21:00)
[2017-07-23] MEDS: MEROPENEM 500 MG in SODIUM CHLORIDE 0.9% 50 ML IV SCH ×3 (06:34→22:00)
[2017-07-23] MEDS: FERROUS SULFATE 325MG TABLET PO SCH ×3 (06:34→18:58)
[2017-07-23 07:07] VITALS: BP 96/57
[2017-07-23 08:00] VITALS: BP 91/58
[2017-07-23] MEDS: ASCORBIC ACID 250 MG TABLET PO SCH ×2 (08:31→22:00)
[2017-07-23] MEDS: MULTIVITAMINS,THER W-MINERALS TABLET PO SCH (08:31)
[2017-07-23] MEDS: ZINC SULFATE 220 MG ( 50 ) CAPSULE PO SCH (08:31)
[2017-07-23] MEDS: FAMOTIDINE 20MG TABLET PO SCH ×2 (08:31→22:00)
[2017-07-23 12:00] VITALS: BP 95/50
[2017-07-23 12:32] LABS: BASOPHILS % 1.4 % (0.0-2.0); EOSINOPHILS % 4.7 % (0.0-5.0); HEMATOCRIT. 26.4 % (42.0-52.0); HEMOGLOBIN. 8.5 g/dL (14.0-18.0); MEAN CORPUSCULAR VOLUME 80.5 fL (80.0-94.0); MEAN PLATELET VOLUME 6.4 fl (7.4-10.4); MONOCYTES % 14.6 % (2.0-8.0); NEUTROPHILS % 49.3 % (40.0-76.0); PLATELET 573 x1000/uL (130-400); RED BLOOD CELL COUNT 3.28 mill/uL (4.7-6.1); RED CELL DISTRIBUTION WIDTH 17.6 % (11.6-14.6)
[2017-07-23] MEDS: ACETAMINOPHEN 325MG TABLET PO PRN ×2 (13:27→22:00)
[2017-07-23 16:00] VITALS: BP 95/55
[2017-07-23 20:00] VITALS: BP 92/49
[2017-07-24] VITALS: BP 111/89
[2017-07-24 04:00] VITALS: BP 95/57
[2017-07-24] MEDS: INSULIN LISPRO 100 UNITS/ML SUBCUT SCH ×4 (05:35→21:00)
[2017-07-24] MEDS: BLOOD SUGAR DIAGNOSTIC STRIP TEST SCH ×4 (05:35→21:36)
[2017-07-24] MEDS: MEROPENEM 500 MG in SODIUM CHLORIDE 0.9% 50 ML IV SCH ×3 (05:39→21:36)
[2017-07-24] MEDS: HYDROCODONE/ACETAMINOPHEN 5/325MG TABLET PO PRN ×3 (06:21→21:34)
[2017-07-24 08:00] VITALS: BP 106/65
[2017-07-24] MEDS: ASCORBIC ACID 250 MG TABLET PO SCH ×2 (08:03→21:32)
[2017-07-24] MEDS: FAMOTIDINE 20MG TABLET PO SCH ×2 (08:03→21:32)
[2017-07-24] MEDS: MULTIVITAMINS,THER W-MINERALS TABLET PO SCH (08:03)
[2017-07-24] MEDS: FERROUS SULFATE 325MG TABLET PO SCH ×3 (08:04→17:09)
[2017-07-24] MEDS: ZINC SULFATE 220 MG ( 50 ) CAPSULE PO SCH (08:04)
[2017-07-24 08:38] LABS: HEMATOCRIT. 27.4 % (42.0-52.0); MEAN CORPUSCULAR HEMOGLOBIN 26.5 pg (28.0-32.0); MEAN CORPUSCULAR VOLUME 80.4 fL (80.0-94.0); MEAN PLATELET VOLUME 6.4 fl (7.4-10.4); PLATELET 617 x1000/uL (130-400); RED BLOOD CELL COUNT 3.41 mill/uL (4.7-6.1); RED CELL DISTRIBUTION WIDTH 17.4 % (11.6-14.6)
[2017-07-24 08:53] LABS: CARBON DIOXIDE 30 mEq/L (21-32); CHLORIDE 100 mEq/L (98-107)
[2017-07-24 12:00] VITALS: BP 93/53
[2017-07-24] MEDS: SODIUM HYPOCHLORITE SOLUTION (0.5%)FULL STRENGTH TOP SCH (12:31)
[2017-07-24 16:00] VITALS: BP 110/59
[2017-07-24 16:02] LABS: PLATELET ESTIMATE INCREASED
[2017-07-24 20:00] VITALS: BP 90/55
[2017-07-25] VITALS: BP 95/53
[2017-07-25 04:00] VITALS: BP 103/65
[2017-07-25] MEDS: HYDROCODONE/ACETAMINOPHEN 5/325MG TABLET PO PRN ×2 (05:43→17:11)
[2017-07-25] MEDS: MEROPENEM 500 MG in SODIUM CHLORIDE 0.9% 50 ML IV SCH ×3 (05:43→22:48)
[2017-07-25] MEDS: BLOOD SUGAR DIAGNOSTIC STRIP TEST SCH ×4 (06:03→21:00)
[2017-07-25] MEDS: INSULIN LISPRO 100 UNITS/ML SUBCUT SCH ×4 (06:04→21:00)
[2017-07-25 08:00] VITALS: BP 91/55
[2017-07-25] MEDS: SODIUM HYPOCHLORITE SOLUTION (0.5%)FULL STRENGTH TOP SCH (09:00)
[2017-07-25] MEDS: ASCORBIC ACID 250 MG TABLET PO SCH ×2 (09:23→22:48)
[2017-07-25] MEDS: ZINC SULFATE 220 MG ( 50 ) CAPSULE PO SCH (09:23)
[2017-07-25] MEDS: MULTIVITAMINS,THER W-MINERALS TABLET PO SCH (09:23)
[2017-07-25] MEDS: FAMOTIDINE 20MG TABLET PO SCH ×2 (09:23→22:48)
[2017-07-25] MEDS: FERROUS SULFATE 325MG TABLET PO SCH ×3 (09:23→17:08)
[2017-07-25 12:00] VITALS: BP 99/63
[2017-07-25 16:00] VITALS: BP 91/52
[2017-07-25 20:00] VITALS: BP 88/49
[2017-07-26] VITALS: BP 94/50
[2017-07-26 04:00] VITALS: BP 87/52
[2017-07-26] MEDS: FERROUS SULFATE 325MG TABLET PO SCH ×3 (05:12→18:43)
[2017-07-26] MEDS: MEROPENEM 500 MG in SODIUM CHLORIDE 0.9% 50 ML IV SCH ×3 (05:12→21:22)
[2017-07-26] MEDS: BLOOD SUGAR DIAGNOSTIC STRIP TEST SCH (05:37)
[2017-07-26] MEDS: HYDROCODONE/ACETAMINOPHEN 5/325MG TABLET PO PRN ×3 (05:42→20:24)
[2017-07-26] MEDS: INSULIN LISPRO 100 UNITS/ML SUBCUT SCH (05:47)
[2017-07-26 07:31] LABS: BASOPHILS % 1.3 % (0.0-2.0); EOSINOPHILS % 3.5 % (0.0-5.0); HEMOGLOBIN. 9.6 g/dL (14.0-18.0); LYMPHOCYTES % 18.9 % (20.0-50.0); MEAN CORPUSCULAR HEMOGLOBIN 26.5 pg (28.0-32.0); MEAN CORPUSCULAR VOLUME 80.3 fL (80.0-94.0); MEAN PLATELET VOLUME 6.6 fl (7.4-10.4); MONOCYTES % 12.7 % (2.0-8.0); NEUTROPHILS % 63.6 % (40.0-76.0); PLATELET 610 x1000/uL (130-400); RED BLOOD CELL COUNT 3.61 mill/uL (4.7-6.1); RED CELL DISTRIBUTION WIDTH 17.3 % (11.6-14.6)
[2017-07-26 08:00] VITALS: BP 93/52
[2017-07-26] MEDS: SODIUM HYPOCHLORITE SOLUTION (0.5%)FULL STRENGTH TOP SCH (09:00)
[2017-07-26] MEDS: ASCORBIC ACID 250 MG TABLET PO SCH ×2 (10:09→20:20)
[2017-07-26] MEDS: MULTIVITAMINS,THER W-MINERALS TABLET PO SCH (10:09)
[2017-07-26] MEDS: FAMOTIDINE 20MG TABLET PO SCH ×2 (10:09→20:20)
[2017-07-26] MEDS: ZINC SULFATE 220 MG ( 50 ) CAPSULE PO SCH (10:09)
[2017-07-26 12:00] VITALS: BP 94/52
[2017-07-26 16:00] VITALS: BP 105/50
[2017-07-26 20:00] VITALS: BP 91/57
[2017-07-27] VITALS: BP 101/57
[2017-07-27 04:00] VITALS: BP 106/70
[2017-07-27 05:38] LABS: HEMOGLOBIN. 9.4 g/dL (14.0-18.0); MEAN CORPUSCULAR HEMOGLOBIN 26.9 pg (28.0-32.0); MEAN PLATELET VOLUME 6.4 fl (7.4-10.4); PLATELET 523 x1000/uL (130-400); RED CELL DISTRIBUTION WIDTH 17.2 % (11.6-14.6)
[2017-07-27] MEDS: MEROPENEM 500 MG in SODIUM CHLORIDE 0.9% 50 ML IV SCH ×3 (06:40→21:32)
[2017-07-27] MEDS: FERROUS SULFATE 325MG TABLET PO SCH ×3 (06:40→18:00)
[2017-07-27] MEDS: HYDROCODONE/ACETAMINOPHEN 5/325MG TABLET PO PRN ×2 (06:40→18:02)
[2017-07-27 08:00] VITALS: BP 96/60
[2017-07-27] MEDS: ASCORBIC ACID 250 MG TABLET PO SCH ×2 (09:42→21:32)
[2017-07-27] MEDS: FAMOTIDINE 20MG TABLET PO SCH ×2 (09:42→21:32)
[2017-07-27] MEDS: ZINC SULFATE 220 MG ( 50 ) CAPSULE PO SCH (09:42)
[2017-07-27] MEDS: MULTIVITAMINS,THER W-MINERALS TABLET PO SCH (09:42)
[2017-07-27 10:38] LABS: PLATELET ESTIMATE INCREASED
[2017-07-27 12:00] VITALS: BP 95/55
[2017-07-27 16:00] VITALS: BP 95/53
[2017-07-27] MEDS: SODIUM HYPOCHLORITE SOLUTION (0.5%)FULL STRENGTH TOP SCH ×2 (18:01→21:33)
[2017-07-27 20:00] VITALS: BP 95/58
[2017-07-28] VITALS: BP 98/54
[2017-07-28] MEDS: HYDROCODONE/ACETAMINOPHEN 5/325MG TABLET PO PRN ×3 (00:42→16:04)
[2017-07-28 04:00] VITALS: BP 110/59
[2017-07-28] MEDS: MEROPENEM 500 MG in SODIUM CHLORIDE 0.9% 50 ML IV SCH ×3 (06:27→21:45)
[2017-07-28 07:56] VITALS: BP 94/47
[2017-07-28 08:00] LABS: HEMATOCRIT. 27.7 % (42.0-52.0); HEMOGLOBIN. 9.2 g/dL (14.0-18.0); MEAN CORPUSCULAR HEMOGLOBIN 26.5 pg (28.0-32.0); MEAN CORPUSCULAR VOLUME 80.3 fL (80.0-94.0); MEAN PLATELET VOLUME 6.5 fl (7.4-10.4); PLATELET 534 x1000/uL (130-400); RED BLOOD CELL COUNT 3.45 mill/uL (4.7-6.1); RED CELL DISTRIBUTION WIDTH 17.1 % (11.6-14.6)
[2017-07-28] MEDS: ASCORBIC ACID 250 MG TABLET PO SCH ×2 (08:41→21:44)
[2017-07-28] MEDS: FAMOTIDINE 20MG TABLET PO SCH ×2 (08:41→21:44)
[2017-07-28] MEDS: ZINC SULFATE 220 MG ( 50 ) CAPSULE PO SCH (08:41)
[2017-07-28] MEDS: FERROUS SULFATE 325MG TABLET PO SCH ×3 (08:41→18:18)
[2017-07-28] MEDS: MULTIVITAMINS,THER W-MINERALS TABLET PO SCH (08:41)
[2017-07-28] MEDS: SODIUM HYPOCHLORITE SOLUTION (0.5%)FULL STRENGTH TOP SCH (08:42)
[2017-07-28 12:00] VITALS: BP 98/57
[2017-07-28 13:14] LABS: PLATELET ESTIMATE INCREASED
[2017-07-28 16:00] VITALS: BP 130/69
[2017-07-28] MEDS: ACETAMINOPHEN 325MG TABLET PO PRN (16:04)
[2017-07-28 20:00] VITALS: BP 88/55
[2017-07-29] VITALS: BP 101/58
[2017-07-29] MEDS: HYDROCODONE/ACETAMINOPHEN 5/325MG TABLET PO PRN ×2 (02:01→21:11)
[2017-07-29] MEDS: SODIUM HYPOCHLORITE SOLUTION (0.5%)FULL STRENGTH TOP SCH (02:51)
[2017-07-29 04:00] VITALS: BP 93/55
[2017-07-29] MEDS: MEROPENEM 500 MG in SODIUM CHLORIDE 0.9% 50 ML IV SCH ×3 (05:20→20:53)
[2017-07-29 08:00] VITALS: BP 90/54
[2017-07-29] MEDS: MULTIVITAMINS,THER W-MINERALS TABLET PO SCH (08:58)
[2017-07-29] MEDS: ASCORBIC ACID 250 MG TABLET PO SCH ×2 (08:58→20:52)
[2017-07-29] MEDS: ZINC SULFATE 220 MG ( 50 ) CAPSULE PO SCH (08:58)
[2017-07-29] MEDS: FERROUS SULFATE 325MG TABLET PO SCH ×3 (08:58→18:14)
[2017-07-29] MEDS: FAMOTIDINE 20MG TABLET PO SCH ×2 (08:58→20:52)
[2017-07-29 12:00] VITALS: BP 105/55
[2017-07-29 16:00] VITALS: BP 98/58
[2017-07-29 20:00] VITALS: BP 103/60
[2017-07-30] VITALS: BP 95/57
[2017-07-30 04:00] VITALS: BP 95/49
[2017-07-30] MEDS: MEROPENEM 500 MG in SODIUM CHLORIDE 0.9% 50 ML IV SCH ×3 (05:40→20:51)
[2017-07-30 08:00] VITALS: BP 99/59
[2017-07-30] MEDS: ZINC SULFATE 220 MG ( 50 ) CAPSULE PO SCH (08:12)
[2017-07-30] MEDS: FAMOTIDINE 20MG TABLET PO SCH ×2 (08:12→20:51)
[2017-07-30] MEDS: MULTIVITAMINS,THER W-MINERALS TABLET PO SCH (08:12)
[2017-07-30] MEDS: ASCORBIC ACID 250 MG TABLET PO SCH ×2 (08:12→20:51)
[2017-07-30] MEDS: FERROUS SULFATE 325MG TABLET PO SCH ×3 (08:12→20:01)
[2017-07-30] MEDS: HYDROCODONE/ACETAMINOPHEN 5/325MG TABLET PO PRN ×3 (08:13→21:07)
[2017-07-30 16:00] VITALS: BP 92/56
[2017-07-30] MEDS: SODIUM HYPOCHLORITE SOLUTION (0.5%)FULL STRENGTH TOP SCH (17:22)
[2017-07-30 20:00] VITALS: BP 95/51
[2017-07-31] VITALS: BP 98/49
[2017-07-31] MEDS: HYDROCODONE/ACETAMINOPHEN 5/325MG TABLET PO PRN ×3 (02:13→20:09)
[2017-07-31 04:00] VITALS: BP 98/59
[2017-07-31] MEDS: FERROUS SULFATE 325MG TABLET PO SCH ×3 (06:14→17:15)
[2017-07-31] MEDS: MEROPENEM 500 MG in SODIUM CHLORIDE 0.9% 50 ML IV SCH ×3 (06:15→20:09)
[2017-07-31 08:00] VITALS: BP 97/49
[2017-07-31] MEDS: FAMOTIDINE 20MG TABLET PO SCH ×2 (08:30→20:09)
[2017-07-31] MEDS: ZINC SULFATE 220 MG ( 50 ) CAPSULE PO SCH (08:30)
[2017-07-31] MEDS: ASCORBIC ACID 250 MG TABLET PO SCH ×2 (08:30→20:09)
[2017-07-31] MEDS: MULTIVITAMINS,THER W-MINERALS TABLET PO SCH (08:30)
[2017-07-31] MEDS: SODIUM HYPOCHLORITE SOLUTION (0.5%)FULL STRENGTH TOP SCH (08:31)
[2017-07-31 09:18] LABS: BASOPHILS % 1.1 % (0.0-2.0); EOSINOPHILS % 4.1 % (0.0-5.0); HEMATOCRIT. 31.8 % (42.0-52.0); HEMOGLOBIN. 10.2 g/dL (14.0-18.0); LYMPHOCYTES % 26.6 % (20.0-50.0); MEAN CORPUSCULAR HEMOGLOBIN 26.1 pg (28.0-32.0); MEAN CORPUSCULAR VOLUME 80.9 fL (80.0-94.0); MEAN PLATELET VOLUME 6.9 fl (7.4-10.4); MONOCYTES % 11.1 % (2.0-8.0); NEUTROPHILS % 57.1 % (40.0-76.0); PLATELET 497 x1000/uL (130-400); RED BLOOD CELL COUNT 3.93 mill/uL (4.7-6.1); RED CELL DISTRIBUTION WIDTH 17.3 % (11.6-14.6)
[2017-07-31 16:00] VITALS: BP 88/50
[2017-07-31 20:00] VITALS: BP 102/63
[2017-08-01] VITALS: BP 96/50
[2017-08-01 04:00] VITALS: BP 95/56
[2017-08-01 05:56] LABS: CARBON DIOXIDE 27 mEq/L (21-32); CHLORIDE 99 mEq/L (98-107)
[2017-08-01] MEDS: FERROUS SULFATE 325MG TABLET PO SCH ×3 (06:01→17:05)
[2017-08-01] MEDS: HYDROCODONE/ACETAMINOPHEN 5/325MG TABLET PO PRN ×3 (06:02→21:11)
[2017-08-01 06:03] LABS: HEMATOCRIT. 26.5 % (42.0-52.0); HEMOGLOBIN. 8.7 g/dL (14.0-18.0); MEAN CORPUSCULAR HEMOGLOBIN 26.2 pg (28.0-32.0); MEAN PLATELET VOLUME 6.3 fl (7.4-10.4); PLATELET 482 x1000/uL (130-400); RED BLOOD CELL COUNT 3.32 mill/uL (4.7-6.1); RED CELL DISTRIBUTION WIDTH 16.6 % (11.6-14.6)
[2017-08-01] MEDS: MEROPENEM 500 MG in SODIUM CHLORIDE 0.9% 50 ML IV SCH ×3 (06:03→21:08)
[2017-08-01 08:00] VITALS: BP 97/56
[2017-08-01] MEDS: FAMOTIDINE 20MG TABLET PO SCH ×2 (08:18→21:08)
[2017-08-01] MEDS: ZINC SULFATE 220 MG ( 50 ) CAPSULE PO SCH (08:18)
[2017-08-01] MEDS: ASCORBIC ACID 250 MG TABLET PO SCH ×2 (08:18→21:08)
[2017-08-01] MEDS: MULTIVITAMINS,THER W-MINERALS TABLET PO SCH (08:18)
[2017-08-01] MEDS: SODIUM HYPOCHLORITE SOLUTION (0.5%)FULL STRENGTH TOP SCH (08:21)
[2017-08-01 10:18] LABS: PLATELET ESTIMATE INCREASED
[2017-08-01 12:00] VITALS: BP 90/47
[2017-08-01 16:00] VITALS: BP 92/53
[2017-08-01 20:00] VITALS: BP 109/56
[2017-08-02] VITALS: BP 81/51
[2017-08-02 04:00] VITALS: BP 78/31
[2017-08-02] MEDS: HYDROCODONE/ACETAMINOPHEN 5/325MG TABLET PO PRN ×3 (04:09→20:02)
[2017-08-02] MEDS: MEROPENEM 500 MG in SODIUM CHLORIDE 0.9% 50 ML IV SCH ×3 (05:17→22:44)
[2017-08-02 08:00] VITALS: BP 97/65
[2017-08-02] MEDS: FAMOTIDINE 20MG TABLET PO SCH ×2 (08:33→20:01)
[2017-08-02] MEDS: MULTIVITAMINS,THER W-MINERALS TABLET PO SCH (08:33)
[2017-08-02] MEDS: ASCORBIC ACID 250 MG TABLET PO SCH ×2 (08:34→20:01)
[2017-08-02] MEDS: FERROUS SULFATE 325MG TABLET PO SCH ×3 (08:34→17:20)
[2017-08-02] MEDS: ZINC SULFATE 220 MG ( 50 ) CAPSULE PO SCH (08:34)
[2017-08-02] MEDS: SODIUM HYPOCHLORITE SOLUTION (0.5%)FULL STRENGTH TOP SCH (08:35)
[2017-08-02 11:59] VITALS: BP 102/57
[2017-08-02 16:32] VITALS: BP 110/67
[2017-08-02 20:00] VITALS: BP 117/67
[2017-08-03] VITALS: BP 112/74
[2017-08-03] MEDS: HYDROCODONE/ACETAMINOPHEN 5/325MG TABLET PO PRN ×3 (02:30→17:44)
[2017-08-03 04:00] VITALS: BP 97/59
[2017-08-03 05:35] LABS: HEMATOCRIT. 26.8 % (42.0-52.0); HEMOGLOBIN. 8.8 g/dL (14.0-18.0); MEAN CORPUSCULAR HEMOGLOBIN 26.4 pg (28.0-32.0); MEAN CORPUSCULAR VOLUME 80.2 fL (80.0-94.0); MEAN PLATELET VOLUME 6.7 fl (7.4-10.4); PLATELET 479 x1000/uL (130-400); RED BLOOD CELL COUNT 3.35 mill/uL (4.7-6.1); RED CELL DISTRIBUTION WIDTH 16.6 % (11.6-14.6)
[2017-08-03] MEDS: MEROPENEM 500 MG in SODIUM CHLORIDE 0.9% 50 ML IV SCH ×3 (05:56→21:11)
[2017-08-03 08:00] VITALS: BP 91/54
[2017-08-03] MEDS: FAMOTIDINE 20MG TABLET PO SCH ×2 (08:41→21:11)
[2017-08-03] MEDS: FERROUS SULFATE 325MG TABLET PO SCH ×3 (08:41→17:42)
[2017-08-03] MEDS: ASCORBIC ACID 250 MG TABLET PO SCH ×2 (08:41→21:11)
[2017-08-03] MEDS: MULTIVITAMINS,THER W-MINERALS TABLET PO SCH (08:41)
[2017-08-03] MEDS: ZINC SULFATE 220 MG ( 50 ) CAPSULE PO SCH (08:41)
[2017-08-03] MEDS: SODIUM HYPOCHLORITE SOLUTION (0.5%)FULL STRENGTH TOP SCH ×2 (08:43→10:58)
[2017-08-03 12:00] VITALS: BP 108/55
[2017-08-03 16:00] VITALS: BP 102/58
[2017-08-03 17:05] LABS: PLATELET ESTIMATE INCREASED
[2017-08-03 20:00] VITALS: BP 95/57
[2017-08-04] VITALS: BP 96/51
[2017-08-04 04:00] VITALS: BP 97/54
[2017-08-04] MEDS: HYDROCODONE/ACETAMINOPHEN 5/325MG TABLET PO PRN ×3 (04:27→20:52)
[2017-08-04] MEDS: MEROPENEM 500 MG in SODIUM CHLORIDE 0.9% 50 ML IV SCH (05:13)
[2017-08-04 06:36] LABS: HEMATOCRIT. 26.5 % (42.0-52.0); HEMOGLOBIN. 8.8 g/dL (14.0-18.0); MEAN CORPUSCULAR HEMOGLOBIN 26.1 pg (28.0-32.0); MEAN PLATELET VOLUME 6.6 fl (7.4-10.4); PLATELET 473 x1000/uL (130-400); RED BLOOD CELL COUNT 3.36 mill/uL (4.7-6.1); RED CELL DISTRIBUTION WIDTH 16.7 % (11.6-14.6)
[2017-08-04 08:00] VITALS: BP 96/61
[2017-08-04] MEDS: ZINC SULFATE 220 MG ( 50 ) CAPSULE PO SCH (08:17)
[2017-08-04] MEDS: FERROUS SULFATE 325MG TABLET PO SCH ×3 (08:17→16:30)
[2017-08-04] MEDS: MULTIVITAMINS,THER W-MINERALS TABLET PO SCH (08:17)
[2017-08-04] MEDS: SODIUM HYPOCHLORITE SOLUTION (0.5%)FULL STRENGTH TOP SCH (08:17)
[2017-08-04] MEDS: FAMOTIDINE 20MG TABLET PO SCH ×2 (08:17→20:47)
[2017-08-04] MEDS: ASCORBIC ACID 250 MG TABLET PO SCH ×2 (08:17→20:47)
[2017-08-04 12:00] VITALS: BP 98/54
[2017-08-04 13:49] LABS: PLATELET ESTIMATE INCREASED
[2017-08-04 16:00] VITALS: BP 95/58
[2017-08-04 20:00] VITALS: BP 100/59
[2017-08-05] VITALS: BP 95/53
[2017-08-05] MEDS: HYDROCODONE/ACETAMINOPHEN 5/325MG TABLET PO PRN ×3 (03:30→19:39)
[2017-08-05 03:31] VITALS: BP 94/5
[2017-08-05 06:24] LABS: HEMATOCRIT. 24.3 % (42.0-52.0); HEMOGLOBIN. 8.1 g/dL (14.0-18.0); MEAN CORPUSCULAR HEMOGLOBIN 26.5 pg (28.0-32.0); MEAN CORPUSCULAR VOLUME 79.6 fL (80.0-94.0); MEAN PLATELET VOLUME 6.8 fl (7.4-10.4); PLATELET 514 x1000/uL (130-400); RED BLOOD CELL COUNT 3.05 mill/uL (4.7-6.1); RED CELL DISTRIBUTION WIDTH 16.6 % (11.6-14.6)
[2017-08-05] MEDS: FERROUS SULFATE 325MG TABLET PO SCH ×3 (06:24→17:35)
[2017-08-05 08:00] VITALS: BP 88/57
[2017-08-05] MEDS: ASCORBIC ACID 250 MG TABLET PO SCH ×2 (08:40→20:59)
[2017-08-05] MEDS: SODIUM HYPOCHLORITE SOLUTION (0.5%)FULL STRENGTH TOP SCH (08:40)
[2017-08-05] MEDS: ZINC SULFATE 220 MG ( 50 ) CAPSULE PO SCH (08:40)
[2017-08-05] MEDS: MULTIVITAMINS,THER W-MINERALS TABLET PO SCH (08:40)
[2017-08-05 11:13] LABS: PLATELET ESTIMATE INCREASED
[2017-08-05 12:00] VITALS: BP 97/65
[2017-08-05 16:00] VITALS: BP 88/48
[2017-08-06] VITALS: BP 102/59
[2017-08-06] MEDS: HYDROCODONE/ACETAMINOPHEN 5/325MG TABLET PO PRN ×3 (02:25→22:00)
[2017-08-06 04:00] VITALS: BP 101/56
[2017-08-06 06:09] LABS: BASOPHILS % 1.5 % (0.0-2.0); EOSINOPHILS % 4.4 % (0.0-5.0); HEMATOCRIT. 27.6 % (42.0-52.0); HEMOGLOBIN. 9.1 g/dL (14.0-18.0); LYMPHOCYTES % 24.7 % (20.0-50.0); MEAN CORPUSCULAR HEMOGLOBIN 26.3 pg (28.0-32.0); MEAN PLATELET VOLUME 6.6 fl (7.4-10.4); MONOCYTES % 13.6 % (2.0-8.0); NEUTROPHILS % 55.8 % (40.0-76.0); PLATELET 527 x1000/uL (130-400); RED BLOOD CELL COUNT 3.45 mill/uL (4.7-6.1); RED CELL DISTRIBUTION WIDTH 16.7 % (11.6-14.6)
[2017-08-06] MEDS: FERROUS SULFATE 325MG TABLET PO SCH ×3 (06:27→16:29)
[2017-08-06 06:41] LABS: CARBON DIOXIDE 27 mEq/L (21-32); CHLORIDE 99 mEq/L (98-107)
[2017-08-06] MEDS: MEROPENEM 500 MG in SODIUM CHLORIDE 0.9% 50 ML IV SCH ×3 (07:14→21:40)
[2017-08-06 08:00] VITALS: BP 120/63
[2017-08-06] MEDS: SODIUM HYPOCHLORITE SOLUTION (0.5%)FULL STRENGTH TOP SCH (09:59)
[2017-08-06] MEDS: MULTIVITAMINS,THER W-MINERALS TABLET PO SCH (10:00)
[2017-08-06] MEDS: ZINC SULFATE 220 MG ( 50 ) CAPSULE PO SCH (10:00)
[2017-08-06] MEDS: ASCORBIC ACID 250 MG TABLET PO SCH (10:01)
[2017-08-06 12:06] VITALS: BP 122/66
[2017-08-06 16:00] VITALS: BP 99/52
[2017-08-06 20:00] VITALS: BP 94/67
[2017-08-07] VITALS: BP 95/55
[2017-08-07 04:00] VITALS: BP 94/60
[2017-08-07] MEDS: MEROPENEM 500 MG in SODIUM CHLORIDE 0.9% 50 ML IV SCH ×3 (05:22→21:31)
[2017-08-07 06:26] LABS: BASOPHILS % 1.7 % (0.0-2.0); HEMATOCRIT. 29.4 % (42.0-52.0); HEMOGLOBIN. 9.4 g/dL (14.0-18.0); LYMPHOCYTES % 39.3 % (20.0-50.0); MEAN CORPUSCULAR VOLUME 80.8 fL (80.0-94.0); MEAN PLATELET VOLUME 6.6 fl (7.4-10.4); MONOCYTES % 14.1 % (2.0-8.0); NEUTROPHILS % 35.9 % (40.0-76.0); PLATELET 519 x1000/uL (130-400); RED BLOOD CELL COUNT 3.64 mill/uL (4.7-6.1); RED CELL DISTRIBUTION WIDTH 17.1 % (11.6-14.6)
[2017-08-07] MEDS: FERROUS SULFATE 325MG TABLET PO SCH ×3 (08:38→17:38)
[2017-08-07] MEDS: MULTIVITAMINS,THER W-MINERALS TABLET PO SCH (08:38)
[2017-08-07] MEDS: ZINC SULFATE 220 MG ( 50 ) CAPSULE PO SCH (08:38)
[2017-08-07] MEDS: ASCORBIC ACID 250 MG TABLET PO SCH (08:38)
[2017-08-07] MEDS: HYDROCODONE/ACETAMINOPHEN 5/325MG TABLET PO PRN ×2 (08:38→15:48)
[2017-08-07] MEDS: SODIUM HYPOCHLORITE SOLUTION (0.5%)FULL STRENGTH TOP SCH (08:39)
[2017-08-07 12:00] VITALS: BP 109/66
[2017-08-07 16:00] VITALS: BP 96/57
[2017-08-07 20:00] VITALS: BP 101/62
[2017-08-08] VITALS: BP 107/67
[2017-08-08] MEDS: HYDROCODONE/ACETAMINOPHEN 5/325MG TABLET PO PRN ×4 (01:07→21:32)
[2017-08-08 04:00] VITALS: BP 97/61
[2017-08-08 04:17] LABS: OVA & PARASITE EXAM Final report (.)
[2017-08-08] MEDS: MEROPENEM 500 MG in SODIUM CHLORIDE 0.9% 50 ML IV SCH ×3 (05:43→21:27)
[2017-08-08 08:00] VITALS: BP 93/63
[2017-08-08] MEDS: MULTIVITAMINS,THER W-MINERALS TABLET PO SCH (08:37)
[2017-08-08] MEDS: ZINC SULFATE 220 MG ( 50 ) CAPSULE PO SCH (08:37)
[2017-08-08] MEDS: FERROUS SULFATE 325MG TABLET PO SCH ×2 (08:38→12:31)
[2017-08-08] MEDS: ASCORBIC ACID 250 MG TABLET PO SCH (08:38)
[2017-08-08] MEDS: SODIUM HYPOCHLORITE SOLUTION (0.5%)FULL STRENGTH TOP SCH (08:39)
[2017-08-08 12:00] VITALS: BP 123/64
[2017-08-08 16:00] VITALS: BP 123/73
[2017-08-08 20:00] VITALS: BP 110/57
[2017-08-09] VITALS: BP 107/63
[2017-08-09 04:00] VITALS: BP 98/50
[2017-08-09] MEDS: MEROPENEM 500 MG in SODIUM CHLORIDE 0.9% 50 ML IV SCH ×2 (05:05→15:19)
[2017-08-09] MEDS: HYDROCODONE/ACETAMINOPHEN 5/325MG TABLET PO PRN ×2 (05:18→15:19)
[2017-08-09 08:00] VITALS: BP 122/65
[2017-08-09 08:17] LABS: BASOPHILS % 0.9 % (0.0-2.0); EOSINOPHILS % 3.1 % (0.0-5.0); HEMATOCRIT. 30.3 % (42.0-52.0); HEMOGLOBIN. 9.8 g/dL (14.0-18.0); LYMPHOCYTES % 18.9 % (20.0-50.0); MEAN CORPUSCULAR HEMOGLOBIN 25.8 pg (28.0-32.0); MEAN CORPUSCULAR VOLUME 80.2 fL (80.0-94.0); MEAN PLATELET VOLUME 6.3 fl (7.4-10.4); MONOCYTES % 10.4 % (2.0-8.0); NEUTROPHILS % 66.7 % (40.0-76.0); PLATELET 497 x1000/uL (130-400); RED BLOOD CELL COUNT 3.78 mill/uL (4.7-6.1); RED CELL DISTRIBUTION WIDTH 16.9 % (11.6-14.6)
[2017-08-09] MEDS: MULTIVITAMINS,THER W-MINERALS TABLET PO SCH (09:06)
[2017-08-09] MEDS: ASCORBIC ACID 250 MG TABLET PO SCH (09:06)
[2017-08-09] MEDS: ZINC SULFATE 220 MG ( 50 ) CAPSULE PO SCH (09:06)
[2017-08-09] MEDS: SODIUM HYPOCHLORITE SOLUTION (0.5%)FULL STRENGTH TOP SCH (09:07)
[2017-08-09 12:00] VITALS: BP 118/60
[2017-08-09 17:56] VITALS: BP 122/79
== END 2017-08-09 18:37 | DRG 720 ==
LOC: ER 19:47 → 5WST 21:02 → ENRESERV 23:24 → ER 07-07 01:34 → 5WST 08-09 10:29
PROVIDERS: ADMIT Internal Medicine Geriatric Medicine; ATTEND Internal Medicine Geriatric Medicine
PROC: 30233N1 Transfusion of Nonautologous Red Blood Cells into Peripheral Vein, Percutaneous Approach (ICD-10-PCS; 2017-07-10)
PROC: 02HV33Z Insertion of Infusion Device into Superior Vena Cava, Percutaneous Approach (ICD-10-PCS; principal; 2017-07-25)
PROC: B5181ZA Fluoroscopy of Superior Vena Cava using Low Osmolar Contrast, Guidance (ICD-10-PCS; 2017-07-25)
PROC: 0HB6XZZ Excision of Back Skin, External Approach (ICD-10-PCS; 2017-07-25)
DX: A41.9 Sepsis, unspecified organism (principal); E43 Unspecified severe protein-calorie malnutrition; L89.159 Pressure ulcer of sacral region, unspecified stage; G82.20 Paraplegia, unspecified; K76.0 Fatty (change of) liver, not elsewhere classified; L03.119 Cellulitis of unspecified part of limb; E11.9 Type 2 diabetes mellitus without complications; E87.1 Hypo-osmolality and hyponatremia; L89.610 Pressure ulcer of right heel, unstageable; G83.9 Paralytic syndrome, unspecified; S30.813A Abrasion of scrotum and testes, initial encounter; N39.0 Urinary tract infection, site not specified; L08.9 Local infection of the skin and subcutaneous tissue, unspecified; E61.1 Iron deficiency; F43.20 Adjustment disorder, unspecified; M46.28 Osteomyelitis of vertebra, sacral and sacrococcygeal region; D64.9 Anemia, unspecified; R74.0 Nonspecific elevation of levels of transaminase and lactic acid dehydrogenase [LDH]; Z59.0 Homelessness; Z68.21 Body mass index [BMI] 21.0-21.9, adult; L89.890 Pressure ulcer of other site, unstageable
CPT/HCPCS: 36415; 36569; 71010; 72220; 73552; 76705; 76937; 77001; 80048; 80053; 80202; 80305; 81001; 82962; 83036; 83540; 83550; 83605; 83735; 84443; 85014; 85018; 85025; 85610; 86705; 86709; 86803; 86850; 86900; 86920; 87040; 87077; 87086; 87177; 87186; 87209; 87340; 93306; 93923; 93970; 94640; 94664; 96361; 96365; 96366; 96368; 96375; 97163; 97166; 99285; C1725; C1893; J1650; J1815; J2185; J2270; J2543; J3370; J7030; J7040; J7050; J7060; J7620; P9016; A4315